=== PATIENT | female | born 2000 | race Caucasian/White ===

== ENCOUNTER 2021-12-02 09:08 | Outpatient (CLI) | payer OTHER | END 2021-12-02 09:09 | disposition home or self-care (01) | LOC: ULT 09:08 | PROVIDERS: ATTEND Nurse Practitioner Family | DX: R22.1 Localized swelling, mass and lump, neck (principal) | CPT/HCPCS: 76536 ==

== ENCOUNTER 2022-02-23 06:01 | Day surgery (SDC) | payer OTHER ==
[2022-02-22 11:11] VITALS: BMI 50.3
[2022-02-23] MEDS ORDERED: Ferric Subsulfate (ASTRINGYN) 8 GM VIAL ONE (06:52)
[2022-02-23] MEDS ORDERED: EPINEPHrine 1 MG/ML AMP ONE (06:52)
[2022-02-23] MEDS ORDERED: Oxymetazoline HCl 0.05% (30 ML BOT) ONE ×2 (06:52→06:57)
[2022-02-23] MEDS ORDERED: Lidocaine 1% (PF) 30 ML VIAL ONE (06:52)
[2022-02-23] MEDS ORDERED: Fentanyl 250 MCG/5 ML VIAL ONE (06:53)
[2022-02-23] MEDS ORDERED: Succinylcholine Chloride 100 MG/5 ML SYRINGE FS ONE (07:46)
[2022-02-23] MEDS ORDERED: PROPOFOL 200 MG/20 ML VIAL ONE (07:46)
[2022-02-23] MEDS ORDERED: Dexamethasone 20 MG/5 ML VIAL ONE (07:46)
[2022-02-23] MEDS ORDERED: Ondansetron PF 4 MG/2 ML Vial ONE (07:46)
[2022-02-23] MEDS ORDERED: Lidocaine 1% PF 5 ML VIAL ONE (07:46)
[2022-02-23] MEDS ORDERED: Fentanyl 100 MCG/2 ML VIAL ONE (08:43)
[2022-02-23] MEDS ORDERED: HYDROcodone/Acetaminophen 5/325 mg Tablet ONE (09:39)
== END 2022-02-23 10:30 | disposition home or self-care (01) ==
LOC: SDC 06:01
PROVIDERS: ATTEND Otolaryngology Plastic Surgery within the Head & Neck
PROC: 09SM0ZZ Reposition Nasal Septum, Open Approach (ICD-10-PCS; principal; 2022-02-23)
PROC: 0CTQXZZ Resection of Adenoids, External Approach (ICD-10-PCS; principal; 2022-02-23)
PROC: 095L0ZZ Destruction of Nasal Turbinate, Open Approach (ICD-10-PCS; principal; 2022-02-23)
PROC: 0CTPXZZ Resection of Tonsils, External Approach (ICD-10-PCS; principal; 2022-02-23)
DX: J34.2 Deviated nasal septum (principal); J34.3 Hypertrophy of nasal turbinates; J35.03 Chronic tonsillitis and adenoiditis; J34.89 Other specified disorders of nose and nasal sinuses; G47.33 Obstructive sleep apnea (adult) (pediatric); J35.8 Other chronic diseases of tonsils and adenoids; Z79.3 Long term (current) use of hormonal contraceptives; Z91.018 Allergy to other foods
CPT/HCPCS: 85014; 88304; J0171; J1100; J2001; J2405; J2704; J3010